=== PATIENT | female | born 1930 | race African-American/Black ===

== ENCOUNTER → 2018-09-21 | Outpatient (CLI) | payer MEDICARE ==
--- NOTE | 2018-09-22 23:55 | WOMENS IMAGING REPORT ---
EXAM DESCRIPTION: 3D SCREENING MAMMO BILAT COMPLETED DATE/TIME: 09/21/2018 1:21 pm REASON FOR STUDY: ROUTINE 3D BILATERAL SCREENING,Z12.31 Z12.31 ENCNTR SCREEN MAMMOGRAM FOR MALIGNAN T NEOPLASM OF KAREN COMPARISON: None. TECHNIQUE: Standard craniocaudal and mediolateral oblique views of each breast recorded using digita l acquisition and breast tomosynthesis. LIMITATIONS: None. FINDINGS: RIGHT BREAST MASSES: In the right central breast, slightly lateral to the nipple, about 6 cm from the nipple a mal ignant appearing mammographic mass is present measuring about 2 cm in size. This has architectural d istortion and ill-defined margins. Follow-up right breast ultrasound-guided core biopsy of this mass is present, with post biopsy clip placement and follow-up two-view mammogram. CALCIFICATIONS: No new or suspicious calcifications. ARCHITECTURAL DISTORTION: None. DEVELOPING DENSITY: None. ASYMMETRY: None noted. OTHER: No other significant findings. LEFT BREAST MASSES: No suspicious masses. CALCIFICATIONS: No new or suspicious calcifications. ARCHITECTURAL DISTORTION: None. DEVELOPING DENSITY: None. ASYMMETRY: None noted. OTHER: No other significant findings. Read with the assistance of CAD. .[facility] - R2 Cenova Version 1.3 .[facility] - R2 Cenova Version 2.1 .[facility] - R2 Cenova Version 2.4 .[facility] - R2 Cenova Version 2.4 .[facility] - R2 Traffic Clerk Version 9.2 IMPRESSION: Malignant appearing right breast mass 6 cm deep to the nipple in the central breast, sli ghtly lateral to the nipple. Ultrasound-guided core biopsy with post biopsy clip placement and follo w-up two-view mammogram recommended. No mammographic/tomosynthesis evidence for malignancy left breast BREAST DENSITY: b. There are scattered areas of fibroglandular density. BIRAD: BI-RADS: 5 Highly suggestive of malignancy. Biopsy should be performed in the absence of cl inical contra-indication. RECOMMENDATION: RECOMMENDED FOLLOW-UP: Ultrasound-guided right breast core biopsy with post biopsy c lip placement and immediate follow-up two-view mammogram Patient notified by letter COMMENT: The patient has been notified of the results by letter per MQSA requirements. Additional no tification policies are in place for contacting patient with suspicious or incomplete findings. Quality ID #225: The [employer] recommends an annual screening mammogram for women aged 40 years or over. This facility utilizes a reminder system to ensure that all patients receive reminder letters, and/or direct phone calls for appointments. This includes reminders for routine scr eening mammograms, diagnostic mammograms, or other Breast Imaging Interventions when appropriate. Th is patient will be placed in the appropriate reminder system. The [employer] (ACR) has developed recommendations for screening MRI of the breast s in certain patient populations, to be used in conjunction with mammography. Breast MRI surveillanc e may be appropriate for women with more than 20% lifetime risk of developing breast cancer as deter mined by genetic testing, significant family history of the disease, or history of mantle radiation f or Hodgkins Disease. ACR Practice Guidelines 2008. DBT Technology DBT is a type of tomographic mammography. With conventional mammography, overlapping breast tissue ma y make lesions difficult to detect, even with good compression. DBT uses an x-ray tube that rotates a round the breast, taking images at different angles. These images are then combined to create thin sl ices of the breast that the radiologist can view as a 3D reconstruction. The [employer] unit can perform full-field digital mammograms (2D imaging); or DBT (3D imaging); or both, in a combination mode that quickly performs both the mammogram and the tomosynthesis scan while the breast is still compressed. PQRS 6045F: Fluoroscopic imaging is not utilized for breast tomosynthesis. TECHNICAL DOCUMENTATION: FINDING NUMBER: (1) ASSESSMENT: (1) JOB ID: [id number] [employer]- All Rights Reserved Reading location - IP/workstation name: [email or web address]
== END ==
LOC: WI 13:07
PROVIDERS: ATTEND Physician Assistant
DX: Z12.31 Encounter for screening mammogram for malignant neoplasm of breast (principal); N63.10 Unspecified lump in the right breast, unspecified quadrant
CPT/HCPCS: 77063; 77067

== ENCOUNTER → 2018-10-24 | Outpatient (CLI) | payer MEDICARE ==
--- NOTE | 2018-10-25 09:48 | RADIOLOGY REPORT (SQ) ---
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 RADIONUCLIDE AND DOSE: 10 mCi F18 FDG The route of agent administration: Intravenous FASTING BLOOD SUGAR: 92 mg/dl CONTRAST TYPE AND DOSE: No CT contrast given. TECHNIQUE: Blood glucose level was verified. Above dose of FDG was injected intravenously. 2-D seg mented attenuation correction images were obtained from the base of the skull to the midthighs. Nonc ontrast CT images were obtained for attenuation correction and fusion with emission images. CT image s were performed without oral or intravenous contrast and are not sensitive for parenchymal lesions. A series of overlapping emission PET images were obtained. Images reviewed and manipulated at [facility] work station by the radiologist. Images stored on PACS. LIMITATIONS: None. FINDINGS: HEAD AND NECK: No areas of abnormal metabolic activity in the soft tissues of the head and neck. CHEST: Right breast mass with mean SUV 8.67. No axillary adenopathy. Otherwise no areas of abnormal metabolic activity in the chest. ABDOMEN AND PELVIS: No areas of abnormal metabolic activity in the abdomen or pelvis. Expected physi ologic activity is present in the genitourinary system and bowel. PROXIMAL LOWER EXTREMITIES: No areas of abnormal metabolic activity in the soft tissues of the lower extremities. BONES: No abnormal metabolic activity in the visualized skeleton. ADDITIONAL CT FINDINGS: No additional significant findings on the noncontrast CT images. OTHER: Background blood pool activity mean SUV 2.32. Background liver activity mean SUV 2.89. No ot her significant findings. IMPRESSION: HYPERMETABOLIC RIGHT BREAST MASS WHICH CORRESPONDS WITH THE BIOPSY PROVEN MALIGNANCY. N O ABNORMAL AXILLARY ADENOPATHY. NO EVIDENCE OF METASTASES. NO OTHER SIGNIFICANT FINDINGS. TECHNICAL DOCUMENTATION: JOB ID: [id number] [employer]- All Rights Reserved Reading location - IP/workstation name: [email or web address]
== END ==
LOC: RAD 18:54
PROVIDERS: ATTEND Internal Medicine Medical Oncology
DX: C50.911 Malignant neoplasm of unspecified site of right female breast (principal)
CPT/HCPCS: 78815; A9552

== ENCOUNTER → 2019-01-11 | Outpatient (CLI) | payer MEDICARE ==
--- NOTE | 2019-01-11 14:00 | RADIOLOGY REPORT (SQ) ---
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 RADIONUCLIDE AND DOSE: 25 mCi technetium 99m labeled red blood cells The route of agent administration: Intravenous TECHNIQUE: Following administration of the radionuclide, gated images of the heart are obtained in t hree projections. Left ventricular functional analysis performed. LIMITATIONS: None. FINDINGS: LEFT VENTRICULAR FUNCTION: EJECTION FRACTION: 72%. END-DIASTOLIC VOLUME: 45 mL. END-SYSTOLIC VOLUME: 12 mL. WALL MOTION: No focal wall motion abnormalities. OTHER: No other significant finding. IMPRESSION: NORMAL CARDIAC MUGA STUDY. NORMAL LEFT VENTRICULAR FUNCTION WITH VALUES ABOVE. TECHNICAL DOCUMENTATION: JOB ID: [id number] [employer]- All Rights Reserved Reading location - IP/workstation name: [email or web address]
== END ==
LOC: RAD 10:45
PROVIDERS: ATTEND Internal Medicine Medical Oncology
DX: I42.7 Cardiomyopathy due to drug and external agent (principal)
CPT/HCPCS: 78472; A9560; Q9969

== ENCOUNTER → 2019-04-30 | Outpatient (CLI) | payer MEDICARE ==
--- NOTE | 2019-04-30 13:36 | RADIOLOGY REPORT (SQ) ---
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 RADIONUCLIDE AND DOSE: 20 mCi technetium 99m labeled red blood cells The route of agent administration: Intravenous TECHNIQUE: Following administration of the radionuclide, gated images of the heart are obtained in t hree projections. Left ventricular functional analysis performed. LIMITATIONS: None. FINDINGS: LEFT VENTRICULAR FUNCTION: EJECTION FRACTION: 73%. WALL MOTION: No focal wall motion abnormalities. OTHER: No other significant finding. IMPRESSION: NORMAL CARDIAC MUGA STUDY. NORMAL LEFT VENTRICULAR FUNCTION WITH VALUES ABOVE. TECHNICAL DOCUMENTATION: JOB ID: [id number] [employer]- All Rights Reserved Reading location - IP/workstation name: [email or web address]
== END ==
LOC: RAD 10:29
PROVIDERS: ATTEND Internal Medicine Medical Oncology
DX: T45.1X1A Poisoning by antineoplastic and immunosuppressive drugs, accidental (unintentional), initial encounter (principal); I42.7 Cardiomyopathy due to drug and external agent; Y92.9 Unspecified place or not applicable
CPT/HCPCS: 78472; A9560; Q9969

== ENCOUNTER → 2019-05-10 | Outpatient (CLI) | payer MEDICARE ==
--- NOTE | 2019-05-10 10:46 | WOMENS IMAGING REPORT ---
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 TECHNIQUE: Dual-Energy X-ray Absorptiometry (DEXA) of the AP Spine and Hip. LIMITATIONS: None. FINDINGS: LUMBAR SPINE: The bone mineral density (BMD) measured from L1-L4 in the AP projection correlates with a T-score of +1.2, which is normal as defined by the World Health Organization. Please note that this does includ e vertebral body endplate sclerosis at L2-3 and L3-4. BMD Change vs Baseline: N/A HIP: The bone mineral density (BMD) measured in the left femoral neck at the hip correlates with a T-score of -2.9, which is osteoporotic as defined by the World Health Organization. BMD Change vs Baseline: N/A 10 year Fracture Risk Assessment: Major Osteoporotic Fracture: Not available. Hip Fracture: Not available. IMPRESSION: 1. LUMBAR SPINE WHO CLASSIFICATION: Normal 2. HIP WHO CLASSIFICATION: Osteoporotic OVERALL ASSESSMENT: WHO CLASSIFICATION: Osteoporotic COMMENT: The World Health Organization defines low BMD as follows: T-score: Normal: Greater than -1.0 Osteopenia: Between -1.0 and -2.5 Osteoporosis: Less than -2.5 without fractures Established osteoporosis: Less than -2.5 with fractures In general, you may wish to consider: Diagnosis Treatment Follow-up DEXA Normal BMD Prevention 2-3 years Osteopenia Prevention/Therapy 1-2 years Osteoporosis Therapy Yearly TECHNICAL DOCUMENTATION: JOB ID: [id number]- All Rights Reserved Reading location - IP/workstation name: [email or web address]
== END ==
LOC: WI 08:55
PROVIDERS: ATTEND Internal Medicine Hematology & Oncology
DX: M81.0 Age-related osteoporosis without current pathological fracture (principal)
CPT/HCPCS: 77080

== ENCOUNTER → 2019-09-17 | Outpatient (CLI) | payer MEDICARE ==
--- NOTE | 2019-09-17 17:38 | RADIOLOGY REPORT (SQ) ---
EXAM DESCRIPTION: NM MUGA REST COMPLETED DATE/TIME: 09/17/2019 12:52 pm REASON FOR STUDY: Z08 ENCNTR FOR FOLLOW-UP EXAM AFTER TRTMT FOR MALIGNANT NEOPLASM Z08 ENCNTR FOR F OLLOW-UP EXAM AFTER TRTMT FOR MALIGNANT NEOP COMPARISON: Resting lung 01/04/2019, 04/30/2019 RADIONUCLIDE AND DOSE: 25.1 mCi technetium 99m labeled red blood cells The route of agent administration: Intravenous TECHNIQUE: Following administration of the radionuclide, gated images of the heart are obtained in t hree projections. Left ventricular functional analysis performed. LIMITATIONS: None. FINDINGS: LEFT VENTRICULAR FUNCTION: EJECTION FRACTION: 75%. END-DIASTOLIC VOLUME: 48 mL. END-SYSTOLIC VOLUME: 10 mL. WALL MOTION: No focal wall motion abnormalities. OTHER: No other significant finding. IMPRESSION: Normal left ventricular ejection fraction of 75% TECHNICAL DOCUMENTATION: JOB ID: [id number] [employer]- All Rights Reserved Reading location - IP/workstation name: [email or web address]
== END ==
LOC: RAD 10:44
PROVIDERS: ATTEND Nurse Practitioner Family
DX: Z08 Encounter for follow-up examination after completed treatment for malignant neoplasm (principal); Z79.899 Other long term (current) drug therapy
CPT/HCPCS: 78472; A9560; Q9969

== ENCOUNTER → 2019-09-27 | Outpatient (CLI) | payer MEDICARE ==
--- NOTE | 2019-09-27 13:59 | WOMENS IMAGING REPORT ---
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 EXAM PARAMETERS: Standard craniocaudal and mediolateral oblique views of each breast recorded using digital acquisition and breast tomosynthesis. Additional true lateral and exaggerated CC lateral images of the right breast acquired. Read with the assistance of CAD: .[facility] - [employer] Station Manager Version 9.2 LIMITATIONS: None. FINDINGS: RIGHT BREAST MASSES: No suspicious masses. CALCIFICATIONS: No new or suspicious calcifications. ARCHITECTURAL DISTORTION: Surgical changes. ASYMMETRY: None noted. OTHER: Diffuse skin thickening. LEFT BREAST MASSES: No suspicious masses. CALCIFICATIONS: No new or suspicious calcifications. ARCHITECTURAL DISTORTION: None. ASYMMETRY: None noted. OTHER: No other significant finding. IMPRESSION: Posttreatment/surgical changes in the right breast. Stable mammographic appearance of t he left breast. BREAST DENSITY: c. The breasts are heterogeneously dense, which may obscure small masses. BIRAD: ASSESSMENT: 2 Benign findings. RECOMMENDATION: RECOMMENDED FOLLOW UP: Post lumpectomy protocol. SPECIFIC INTERVENTION/IMAGING/CONSULTATION RECOMMENDED:No additional intervention/ imaging/consultati on needed at this time. COMMUNICATION:The imaging findings were not discussed with the patient. Her referring provider has be en notified of the findings. COMMENT: The patient has been notified of the results by letter per MQSA requirements. Additional no tification policies are in place for contacting patient with suspicious or incomplete findings. Quality ID #225: The [employer] [employer] recommends an annual screening mammogram for women aged 40 years or over. This facility utilizes a reminder system to ensure that all patients receive reminder letters, and/or direct phone calls for appointments. This includes reminders for routine scr eening mammograms, diagnostic mammograms, or other Breast Imaging Interventions when appropriate. Th is patient will be placed in the appropriate reminder system. TECHNICAL DOCUMENTATION: FINDING NUMBER: (1) ASSESSMENT: (1) JOB ID: [id number] 2010 [employer]- All Rights Reserved Reading location - IP/workstation name: [email or web address]
== END ==
LOC: WI 10:55
PROVIDERS: ATTEND Internal Medicine Hematology & Oncology
DX: C50.811 Malignant neoplasm of overlapping sites of right female breast (principal)
CPT/HCPCS: 77066; G0279; 77062

== ENCOUNTER → 2020-01-03 | Outpatient (CLI) | payer MEDICARE ==
--- NOTE | 2020-01-03 13:13 | RADIOLOGY REPORT (SQ) ---
EXAM DESCRIPTION: NM MUGA REST IMAGES COMPLETED DATE/TIME: 01/03/2020 12:37 pm REASON FOR STUDY: (Z08)ENCNTR FOR FOLLOW-UP EXAM AFTER TRTMT FOR MALIGNANT NEOPLASM Z08 ENCNTR FOR FOLLOW-UP EXAM AFTER TRTMT FOR MALIGNANT NEOP Z51.11 ENCOUNTER FOR ANTINEOPLASTIC CHEMOTHERAPY COMPARISON: 09/17/2019. RADIONUCLIDE AND DOSE: 25.6 mCi technetium 99m labeled red blood cells The route of agent administration: Intravenous TECHNIQUE: Following administration of the radionuclide, gated images of the heart are obtained in t hree projections. Left ventricular functional analysis performed. LIMITATIONS: None. FINDINGS: LEFT VENTRICULAR FUNCTION: EJECTION FRACTION: 68%. END-DIASTOLIC VOLUME: 59 mL. END-SYSTOLIC VOLUME: 18 mL. WALL MOTION: No focal wall motion abnormalities. OTHER: No other significant finding. IMPRESSION: NORMAL CARDIAC MUGA STUDY. NORMAL LEFT VENTRICULAR FUNCTION WITH VALUES ABOVE. TECHNICAL DOCUMENTATION: JOB ID: [id number] 2010 [employer]- All Rights Reserved Reading location - IP/workstation name: [email or web address]
== END ==
LOC: RAD 10:55
PROVIDERS: ATTEND Nurse Practitioner Family
DX: Z13.6 Encounter for screening for cardiovascular disorders (principal); Z51.11 Encounter for antineoplastic chemotherapy; Z08 Encounter for follow-up examination after completed treatment for malignant neoplasm
CPT/HCPCS: 78472; A9560; Q9969